=== PATIENT | male | born 1945 | race Hispanic/Latino ===

== ENCOUNTER 2018-05-19 13:28 | Emergency (ER) | payer OTHER ==
--- NOTE | 2018-05-19 16:28 | RAD REPORT ---
EXAM DESCRIPTION: RAD - Foot Left 3 View - 05/19/2018 3:01 pm CLINICAL HISTORY: Left Foot pain FINDINGS: No fracture or dislocation is seen. The bones are osteoporotic
--- NOTE | 2018-05-19 16:34 | ER ---
Nurse's Notes [facility] Name: Jonas Winters Age: 72 yrs Sex: Male : 1945 Arrival Date: 05/19/2018 Time: 13:35 Bed 11 Private MD: Diagnosis: Contusion of left foot Presentation: 05/19 13:59 Presenting complaint: Patient states: I tripped on the floor tile that was popped up, and my L boot it it and the tile came completely up and I stubbed my foot on it. sharp tingling and pain shot from my toe to the back of my foot, I am still having pain. Transition of care: patient was not received from another setting of care. Onset of symptoms was May 19, 2018 at 13:00. Risk Assessment: Do you want to hurt yourself or someone else? Patient reports no desire to harm self or others. Initial Sepsis Screen: Does the patient meet any 2 criteria? No. Patient's initial sepsis screen is negative. Does the patient have a suspected source of infection? No. Patient's initial sepsis screen is negative. Care prior to arrival: None. 13:59 Method Of Arrival: Ambulatory 13:59 Acuity: MICHELLE 4 ch Triage Assessment: 14:03 General: Appears in no apparent distress. comfortable, Behavior is calm, cooperative, ch appropriate for age. Pain: Complains of pain in left foot. Musculoskeletal: Capillary refill < 3 seconds, in bilateral toes. Range of motion: intact in all extremities. Injury Description: stubbed. Historical: - Allergies: 14:03 No Known Allergies; ch - PMHx: 14:03 Hypertension; Hyperlipidemia; prostate issues/urination issues; ptsd; ch - Immunization history:: Adult Immunizations up to date. - Social history:: Smoking status: Patient/guardian denies using tobacco, Patient/guardian denies using alcohol, street drugs. - Ebola Screening: : Patient negative for fever greater than or equal to 101.5 degrees Fahrenheit, and additional compatible Ebola Virus Disease symptoms Patient denies exposure to infectious person Patient denies travel to an Ebola-affected area in the 21 days before illness onset No symptoms or risks identified at this time. - Family history:: not pertinent. - Hospitalizations: : No recent hospitalization is reported. Screenin:32 Abuse screen: Denies threats or abuse. Denies injuries from another. Nutritional ss screening: No deficits noted. Tuberculosis screening: No symptoms or risk factors identified. Never had TB. Fall Risk None identified. Assessment: 14:32 General: Appears in no apparent distress. comfortable, Behavior is calm, cooperative, ss Denies fever, feeling ill, fatigue, chills. Pain: Complains of pain in left foot Pain currently is 6 out of 10 on a pain scale. Quality of pain is described as tender, Pain began 2 hours ago. Is continuous, Aggravated by weight bearing. Neuro: Level of Consciousness is awake, alert, obeys commands. Cardiovascular: Capillary refill < 3 seconds is brisk in bilateral fingers toes Pulses are palpable in right dorsalis pedis artery and left dorsalis pedis artery. Respiratory: Airway is patent Respiratory effort is even, unlabored, Respiratory pattern is regular, symmetrical. EENT: Nares are clear Oral mucosa is moist. Throat is clear. Derm: Skin is intact, is healthy with good turgor, Skin is dry, Skin is pink, warm \T\ dry. normal. Musculoskeletal: Circulation, motion, and sensation intact. Range of motion: intact in all extremities, Swelling absent. 16:02 Reassessment: Patient appears in no apparent distress at this time. Patient and/or ls4 family updated on plan of care and expected duration. Pain level reassessed. Patient is alert, oriented x 3, equal unlabored respirations, skin warm/dry/pink. 16:25 Reassessment: AWAITING XRAY RESULTS. Vital Signs: 14:03 BP 156 / 86; Pulse 60; Resp 15; Temp 98.8; Pulse Ox 99% on R/A; Pain 3/10; ch 16:39 BP 148 / 72; Pulse 60; Resp 16; Pulse Ox 99% on R/A; Pain 3/10; ls4 ED Course: 13:35 Patient arrived in ED. as 14:02 Triage completed. 14:03 Arm band placed on left wrist. Patient placed in waiting room, in a wheelchair. 14:22 Rivera Ariza MD is Attending Physician. rn 14:32 Saige Bravo RN is Primary Nurse. ss 14:32 Patient has correct armband on for positive identification. Bed in low position. Call ss light in reach. 15:02 XRAY Foot LEFT 3 View In Process Unspecified. EDMS 16:40 No provider procedures requiring assistance completed. Patient did not have IV access ls4 during this emergency room visit. Administered Medications: No medications were administered Outcome: 16:34 Discharge ordered by . rn 16:40 Discharged to home ambulatory. ls4 16:40 Condition: stable 16:40 Discharge instructions given to patient, Instructed on discharge instructions, follow up and referral plans. medication usage, safety practices, Demonstrated understanding of instructions, follow-up care, medications. 16:41 Patient left the ED. ls4 Signatures: Dispatcher [employer] EDND Priya Whalen, RN RN Mihaela Zamorano Roman, MD MD rn Smirch, Shelby, RN RN ss Stewart, Lisa, RN RN ls4
--- NOTE | 2018-05-19 16:35 | EDPHYS ---
Physician Documentation [facility] Name: Jonas Winters Age: 72 yrs Sex: Male : 1945 Arrival Date: 05/19/2018 Time: 13:35 Bed 11 Private MD: ED Physician Rivera Ariza HPI: 05/19 14:33 This 72 yrs old Male presents to ER via Ambulatory with complaints of Foot rn Injury. 14:33 The patient presents with an injury. The complaints affect the left foot. Onset: The rn symptoms/episode began/occurred just prior to arrival. Modifying factors: The symptoms are alleviated by nothing, the symptoms are aggravated by weight bearing. Severity of symptoms: At their worst the symptoms were mild, in the emergency department the symptoms are unchanged. The patient has not experienced similar symptoms in the past. Reports walking at [employer], stubbed toe of boot on loose tile, kashif foot backward and has pain throughout foot, mild. No other injury, no fall. . Historical: - Allergies: 14:03 No Known Allergies; ch - PMHx: 14:03 Hypertension; Hyperlipidemia; prostate issues/urination issues; ptsd; ch - Immunization history:: Adult Immunizations up to date. - Social history:: Smoking status: Patient/guardian denies using tobacco, Patient/guardian denies using alcohol, street drugs. - Ebola Screening: : Patient negative for fever greater than or equal to 101.5 degrees Fahrenheit, and additional compatible Ebola Virus Disease symptoms Patient denies exposure to infectious person Patient denies travel to an Ebola-affected area in the 21 days before illness onset No symptoms or risks identified at this time. - Family history:: not pertinent. - Hospitalizations: : No recent hospitalization is reported. ROS: 14:33 Constitutional: Negative for fever, chills, and weight loss, MS/Extremity: + left foot rn injury and pain Neuro: Negative for weakness, numbness, tingling Exam: 14:33 Constitutional: This is a well developed, well nourished patient who is awake, alert, rn and in no acute distress. MS/ Extremity: Pulses equal, no cyanosis. Neurovascular intact. Full, normal range of motion. Equal circumference. No focal tenderness, no ecchymosis. Vital Signs: 14:03 BP 156 / 86; Pulse 60; Resp 15; Temp 98.8; Pulse Ox 99% on R/A; Pain 3/10; ch 16:39 BP 148 / 72; Pulse 60; Resp 16; Pulse Ox 99% on R/A; Pain 3/10; ls4 MDM: 14:23 Patient medically screened. rn 14:36 ED course: No tenderness of ankle.. rn 16:34 Differential diagnosis: fracture, sprain. Data reviewed: vital signs, nurses notes, rn radiologic studies, plain films, and as a result, I will discharge patient. Counseling: I had a detailed discussion with the patient and/or guardian regarding: the historical points, exam findings, and any diagnostic results supporting the discharge/admit diagnosis, radiology results, the need for outpatient follow up, to return to the emergency department if symptoms worsen or persist or if there are any questions or concerns that arise at home. Special discussion: I discussed with the patient/guardian in detail that at this point there is no indication for admission to the hospital. It is understood, however, that if the symptoms persist or worsen the patient needs to return immediately for re-evaluation. 05/19 14:06 Order name: XRAY Foot LEFT 3 View; Complete Time: 16:33 Administered Medications: No medications were administered Disposition: 05/19/18 16:34 Discharged to Home. Impression: Contusion of left foot. - Condition is Stable. - Discharge Instructions: Foot Contusion, Foot Sprain, Foot Pain. - Medication Reconciliation Form, Thank You Letter, Antibiotic Education, Prescription Opioid Use form. - Follow up: Private Physician; When: As needed; Reason: Recheck today's complaints, Re-evaluation by your physician. - Problem is new. - Symptoms have improved. Signatures: Dispatcher [employer] EDPriya Manrique RN RN Rivera Moody MD MD rn Stewart, Lisa, RN RN ls4 Corrections: (The following items were deleted from the chart) 16:41 16:34 05/19/2018 16:34 Discharged to Home. Impression: Contusion of left foot. ls4 Condition is Stable. Forms are Medication Reconciliation Form, Thank You Letter, Antibiotic Education, Prescription Opioid Use. Follow up: Private Physician; When: As needed; Reason: Recheck today's complaints, Re-evaluation by your physician. Problem is new. Symptoms have improved. rn
== END 2018-05-19 16:41 | disposition home or self-care (01) ==
LOC: ER 13:28
DX: S90.32XA Contusion of left foot, initial encounter (principal); W22.8XXA Striking against or struck by other objects, initial encounter; Y93.01 Activity, walking, marching and hiking; Y92.512 Supermarket, store or market as the place of occurrence of the external cause; I10 Essential (primary) hypertension
CPT/HCPCS: 99283